=== PATIENT | female | born 1960 | race Caucasian/White ===

== ENCOUNTER → 2024-11-13 10:33 | Outpatient (REF) | payer OTHER, SELFPAY ==
[2024-11-13 10:58] VITALS: BP 131/76; BP_SYST 75
[2024-11-13 12:07] VITALS: BP 150/83; BP_SYST 75
[2024-11-13 12:20] VITALS: BP 150/83
== END ==
LOC: RADI 10:33
PROVIDERS: ATTENDING PHYSICIAN Family Medicine
DX: C77.0 Secondary and unspecified malignant neoplasm of lymph nodes of head, face and neck (principal); C80.1 Malignant (primary) neoplasm, unspecified
CPT/HCPCS: 88305; 38505; 76942; 88313; 88333; 88341; 88360